=== PATIENT | male | born 1955 | race Caucasian/White ===

== ENCOUNTER 2017-08-12 09:11 | Day surgery (SDC) | payer OTHER ==
[2017-08-12] MEDS ORDERED: MIDAZOLAM 2 MG/2 ML VIAL IVP ONE (09:21)
[2017-08-12] MEDS ORDERED: NS 500 ML IV ONE (09:21)
[2017-08-12] MEDS ORDERED: ATROPINE SULFATE 1 MG/10 ML SYR IVP ONE (09:21)
[2017-08-12] MEDS ORDERED: BENZOCAINE UNIT DOSE SPRAY HURRICAINE MM ONE (09:21)
[2017-08-12] MEDS ORDERED: fentaNYL 100 MCG/2 ML INJ IVP ONE (09:21)
--- NOTE | 2017-08-12 09:39 | CPEKG ---
Heart Rate: 84 RR Interval: 714 QRSD Interval: 90 QT Interval: 404 QTC Interval: 478 QRS [place]: 12 T Wave [place]: -10 EKG Severity - ABNORMAL ECG - EKG Impression: ATRIAL FIBRILLATION, V-RATE 68-103 EKG Impression: BORDERLINE T ABNORMALITIES, INFERIOR LEADS EKG Impression: BORDERLINE PROLONGED QT INTERVAL Electronically Signed By: Guy Drew 12-Aug-2017 12:42:34
[2017-08-12 09:45] VITALS: RESP 6; O2SAT 97
[2017-08-12 10:06] LABS: INR 1.12 (0.83-1.16); PROTIME(PATIENT) 14.3 SEC (12.0-15.0)
[2017-08-12 10:07] LABS: APTT 29.1 SEC (23.0-38.0)
[2017-08-12 10:16] LABS: ANION GAP 13 mEq/L (8-16); CALCIUM 9.5 mg/dL (8.5-10.4); CARBON DIOXIDE 22 mEq/l (22-31); CHLORIDE 107 mEq/L (97-110); GLOMERULAR FILTRATION RATE > 60; GLUCOSE 85 mg/dL (70-100); MAGNESIUM 1.9 mg/dL (1.6-2.3); POTASSIUM 4.8 mEq/L (3.5-5.2); SODIUM 142 mEq/L (134-144)
--- NOTE | 2017-08-12 10:25 | PDANEPAE ---
ANE History of Present Illness 62 yo male with A-fib for DEANA/CV. ANE Past Medical History - Cardiovascular History Hx Arrhythmias: Yes - Pulmonary History Hx Sleep Apnea: No - Endocrine History Hx Diabetes: No Hypothyroid: No - Renal History Hx Renal Disorders: No - Liver History Hx Hepatic Disorders: No - GI History Hx Gastrointestinal Disorders: No ANE Review of Systems Review of systems is: negative Review of Systems: - Systems Constitutional: Reports: other (fatigue with biking - has to stop more often than usual) Cardiac: Reports: irregular heart rate Respiratory: Reports: no symptoms Gastrointestinal: Reports: no symptoms ANE Patient History - Allergies Allergies/Adverse Reactions: No Known Allergies Allergy (Unverified 08/11/17 14:47) - Home Medications Home medications: home medication list seen and reviewed Home Medications: Eliquis 08/12/17 [Last Taken 08/12/17 08:00] Halcion 0.25MG (*) 08/12/17 [Last Taken Unknown] Ibuprofen 08/12/17 [Last Taken Unknown] - NPO status NPO Since - Liquids (Date): 08/12/17 NPO Since - Liquids (Time): 08:00 (water with meds) - Smoking Hx Smoking Status: Never smoked ANE Labs/Vital Signs - Labs Result Diagrams: 08/12/17 09:40 - Vital Signs Vital Signs: reviewed preoperatively; see RN documention for details Respiratory Rate: 6 O2 Sat (%): 97 Height: 190.5 cm Weight: 96.8 kg ANE Physical Exam - Airway Neck exam: FROM Mallampati Score: Class 1 Mouth exam: dentures (permanently affixed bridges) - Pulmonary Pulmonary: clear to auscultation - Cardiovascular Cardiovascular: irregularly irregular - ASA Status ASA Status: II ANE Anesthesia Plan Anesthesia Plan: GA with mask Total IV Anesthesia: Yes
[2017-08-12] MEDS ORDERED: LIDOCAINE 2% 5 ML SDV ONE (10:26)
[2017-08-12] MEDS ORDERED: PROPOFOL 200 MG/20 ML VIAL ONE (10:26)
[2017-08-12] MEDS ORDERED: ACETAMINOPHEN 500 MG TAB PO PRN (10:44)
[2017-08-12] MEDS ORDERED: NALOXONE HCL 0.4 MG/ML INJ IVP PRN (10:44)
[2017-08-12] MEDS ORDERED: ALBUTEROL 3 ML DEYVIAL IH PRN (10:44)
--- NOTE | 2017-08-12 10:45 | POSTANESTH ---
Post Anesthetic Evaluation Cardiovascular Status: Normal, Stable Respiratory Status: Normal, Stable Level of Consciousness/Mental Status: Moderately Sleepy Pain Control: Adequate, Prn Tx Ordered Nausea/Vomiting Control: Adequate, Prn Tx Ordered Complications Possibly Related to Anesthesia: None Noted
--- NOTE | 2017-08-12 10:49 | CPEKG ---
Heart Rate: 57 RR Interval: 1053 P-R Interval: 176 QRSD Interval: 100 QT Interval: 436 QTC Interval: 425 P [place]: 28 QRS [place]: -2 T Wave [place]: -7 EKG Severity - BORDERLINE ECG - EKG Impression: SINUS RHYTHM EKG Impression: BORDERLINE T ABNORMALITIES, INFERIOR LEADS Electronically Signed By: Guy Drwe 12-Aug-2017 12:42:25
--- NOTE | 2017-08-12 12:03 | PDHPUP ---
History & Physical Update H&P update statement: This history and physical update is based on an assessment of the patient which was completed after admission or registration (within 24 hours), but prior to the surgery/procedure. H&P update: H&P reviewed & patient examined, no change in patient's condition since H&P completed
--- NOTE | 2017-08-12 12:04 | PDTEE1 ---
DEANA Cardioversion Procedure Procedure: transesophageal echo Indications: atrial fibrillation Consent: signed and in chart Anticoagulation: eliquis Procedural Details: Pads were placed in anterior-posterior position. DEANA probe was advanced and standard images obtained. There is no evidence of left atrial or left atrial appendage thrombus. Synchronized cardioversion attempt #1: 200J Results: normal sinus rhythm Conclusions: successful DEANA cardioversion
== END 2017-08-12 11:59 | disposition home or self-care (01) ==
LOC: FCATH 09:11
PROVIDERS: ATTEND Internal Medicine Cardiovascular Disease
PROC: B245ZZ4 Ultrasonography of Left Heart, Transesophageal (ICD-10-PCS; principal; 2017-08-12)
PROC: 5A2204Z Restoration of Cardiac Rhythm, Single (ICD-10-PCS; principal; 2017-08-12)
DX: I48.91 Unspecified atrial fibrillation (principal); I10 Essential (primary) hypertension; R53.83 Other fatigue; Z79.01 Long term (current) use of anticoagulants
CPT/HCPCS: J2704

== ENCOUNTER 2018-02-01 15:03 | Observation (INO) | payer OTHER ==
--- NOTE | 2018-02-01 15:16 | EDPHY ---
H & P Stated Complaint: abd pain Time Seen by Provider: 02/01/18 15:15 HPI/ROS: CHIEF COMPLAINT: HISTORY OF PRESENT ILLNESS: REVIEW OF SYSTEMS: A ten point review of systems was performed and is negative with the exception of the items mentioned in the HPI. Past medical history: Past surgical history: Family history: Social history: General Appearance: Alert. Vital signs reviewed. Eyes: Pupils equal and round, no conjunctival injection, no discharge. Anicteric. ENT, Mouth: Mucous membranes are moist, no oropharyngeal erythema or edema. Neck: No lymphadenopathy, supple. Respiratory: Lungs are clear to auscultation; no wheezes, rales, or rhonchi. Cardiovascular: Regular rate and rhythm; no murmur, rub, or gallop. Gastrointestinal: Abdomen is soft and nontender, no masses or organomegaly, bowel sounds normal. Skin: Warm and dry, no rashes on exposed skin, normal color. Back: Nontender to palpation over the thoracolumbar spine. No CVAT. Extremities: No lower extremity edema, no calf tenderness or swelling. Neurological: Alert and oriented. Moving all four extremities easily and equally. Cranial nerves II through XII are examined and are intact (visual acuity not tested). Strength is 5 over 5 bilaterally with testing of all major motor groups. Sensation is intact to light touch over all 4 extremities. Deep tendon reflexes are 2+ in the biceps and knees bilaterally. Gait is normal. [id number] is performed accurately. Psychiatric: Normal affect. - Personal History Current Tetanus/Diphtheria Vaccine: Yes Current Tetanus Diphtheria and Acellular Pertussis (TDAP): Yes - Medical/Surgical History Hx Asthma: No Hx Chronic Respiratory Disease: No Hx Diabetes: No Hx Cardiac Disease: No Hx Renal Disease: No Hx Cirrhosis: No Hx Alcoholism: No Hx HIV/AIDS: No Hx Splenectomy or Spleen Trauma: No Other PMH: afib, DCCV, prostatectomy 2009 - Social History Smoking Status: Never smoked Constitutional: Initial Vital Signs Temperature (C) 36.4 C 02/01/18 15:09 Heart Rate 52 L 02/01/18 15:09 Respiratory Rate 20 02/01/18 15:09 Blood Pressure 150/91 H 02/01/18 15:09 O2 Sat (%) 96 02/01/18 15:09 O2 Delivery Mode Room Air Allergies/Adverse Reactions: No Known Allergies Allergy (Unverified 02/01/18 15:08) Home Medications: Medication Instructions Recorded Halcion 0.25MG (*) 08/12/17 Ibuprofen 08/12/17 Aspirin 02/01/18 Crestor 02/01/18 Vitamin D3 02/01/18 Departure - Departure Referrals: Sophia Dang MD [Primary Care Provider] - As per Instructions
[2018-02-01] MEDS ORDERED: NS 1,000 ML IV ONE (15:20)
[2018-02-01] MEDS ORDERED: HYDROmorphONE/DILAUDID 2 MG/ML INJ IVP ONE ×2 (15:20→18:45)
[2018-02-01] MEDS ORDERED: ONDANSETRON 4 MG/2 ML VIAL IVP ONE (15:20)
--- NOTE | 2018-02-01 15:24 | EDPHY ---
H & P Stated Complaint: abd pain Time Seen by Provider: 02/01/18 15:15 HPI/ROS: CHIEF COMPLAINT: Abdominal pain, chills HISTORY OF PRESENT ILLNESS: Patient is a 62-year-old man who comes to the emergency department complaining of abdominal pain and chills. He states that it began last night at 2:00 a.m.. He was up until 7:00 a.m. When it improved. He then went to his follow-up cardiology appointment for history of AFib. His tests were normal there and he went to the gym. After coming home from the gym this afternoon the pain returned. His found him lying in bed with chills and moaning. He has not vomited. No diarrhea. No fever. He describes the pain as periumbilical and right lower quadrant and left lower quadrant as well as epigastric. He denies back or flank pain. No testicular pain he does have a history of prostate surgery but no abdominal surgeries. REVIEW OF SYSTEMS: Constitutional: denies: chills, fever, recent illness, recent injury EENTM: denies: blurred vision, double vision, nose congestion Respiratory: denies: cough, shortness of breath Cardiac: denies: chest pain, irregular heart rate, lightheadedness, palpitations Gastrointestinal/Abdominal: See HPI Genitourinary: denies: dysuria, frequency, hematuria, pain Musculoskeletal: denies: joint pain, muscle pain Skin: denies: lesions, rash, jaundice, bruising Neurological: denies: headache, numbness, paresthesia, tingling, dizziness, weakness Hematologic/Lymphatic: denies: blood clots, easy bleeding, easy bruising Immunologic/allergic: denies: HIV/AIDS, transplant EXAM: GENERAL: Uncomfortable, no acute distress HEAD: Atraumatic, normocephalic. EYES: Pupils equal round and reactive to light, extraocular movements intact, sclera anicteric, conjunctiva are normal. ENT: TMs normal, nares patent, oropharynx clear without exudates. Moist mucous membranes. NECK: Normal range of motion, supple without lymphadenopathy or JVD. LUNGS: Breath sounds clear to auscultation bilaterally and equal. No wheezes rales or rhonchi. HEART: Regular rate and rhythm without murmurs, rubs or gallops. ABDOMEN: Right lower quadrant tenderness, left lower quadrant tenderness BACK: No CVA tenderness, no spinal tenderness, step-offs or deformities EXTREMITIES: Normal range of motion, no pitting or edema. No clubbing or cyanosis. NEUROLOGICAL: Cranial nerves II through XII grossly intact. Normal speech, normal gait. 5/5 strength, normal movement in all extremities, normal sensation PSYCH: Normal mood, normal affect. SKIN: Warm, dry, normal turgor, no visible rashes or lesions. Source: Patient Exam Limitations: No limitations - Personal History Current Tetanus/Diphtheria Vaccine: Yes Current Tetanus Diphtheria and Acellular Pertussis (TDAP): Yes - Medical/Surgical History Hx Asthma: No Hx Chronic Respiratory Disease: No Hx Diabetes: No Hx Cardiac Disease: No Hx Renal Disease: No Hx Cirrhosis: No Hx Alcoholism: No Hx HIV/AIDS: No Hx Splenectomy or Spleen Trauma: No Other PMH: afib, prostatectomy 2009 - Family History Significant Family History: No pertinent family hx - Social History Smoking Status: Never smoked Alcohol Use: Sober Drug Use: None Constitutional: Initial Vital Signs Temperature (C) 36.4 C 02/01/18 15:09 Heart Rate 52 L 02/01/18 15:09 Respiratory Rate 20 02/01/18 15:09 Blood Pressure 150/91 H 02/01/18 15:09 O2 Sat (%) 96 02/01/18 15:09 O2 Delivery Mode Nasal Cannula O2 (L/minute) 2 Allergies/Adverse Reactions: No Known Allergies Allergy (Unverified 02/01/18 15:08) Home Medications: Medication Instructions Recorded Ibuprofen [Motrin (*)] 200 - 400 mg PO Q6H PRN 08/12/17 Aspirin [Aspirin 325 mg (*)] 325 mg PO DAILY 02/01/18 Cholecalciferol Vit D3 [Vitamin D3 2,000 units PO DAILY 02/01/18 (*)] Melatonin [Melatonin 3 MG (*)] 3 mg PO HS 02/01/18 Rosuvastatin Calcium [Crestor] 10 mg PO HS 02/01/18 Zolpidem Tartrate [Ambien] 10 mg PO HS PRN 02/01/18 Medical Decision Making - Diagnostics Imaging Results: Imaging Impressions Abdomen CT 02/01/18 16:35 Impression: 1. Acute likely ruptured appendicitis without abscess or free air. 2. Grade 1 spondylolytic spondylolisthesis of L5 on S1. 3. Additional findings as above. Findings discussed with Dr. Roshan Parker on 02/01/2018 at 17:27. Imaging: Discussed imaging studies w/ pass worker Radiologist ED Course/Re-evaluation: 5:30 p.m. we discussed the CT results. The patient is declining more pain medicine. I spoke with Dr. Cevallos who will come to evaluate. We will treat with Sandie. Differential Diagnosis: Partial list of the Differential diagnosis considered include but were not limited to; appendicitis, kidney stone, urinary tract infection diverticulitis and although unlikely based on the history and physical exam, I also considered peptic ulcer disease, ischemia, volvulus. - Data Points Laboratory Results: Laboratory Results 02/01/18 15:30 02/01/18 15:30 02/01/18 02/01/18 02/01/18 15:30 15:30 15:30 WBC RBC Hgb Hct MCV MCH MCHC RDW Plt Count MPV Neut % (Auto) Lymph % (Auto) [place] % (Auto) Eos % (Auto) Baso % (Auto) Nucleat RBC Rel Count Absolute Neuts (auto) Absolute Lymphs (auto) Absolute Monos (auto) Absolute Eos (auto) Absolute Basos (auto) Absolute Nucleated RBC Immature Gran % Immature Gran # PT 13.0 SEC SEC (12.0-15.0) INR 0.96 (0.83-1.16) APTT 23.1 SEC SEC (23.0-38.0) Sodium 140 mEq/L mEq/L (135-145) Potassium 4.2 mEq/L mEq/L (3.5-5.2) Chloride 103 mEq/L mEq/L (97-110) Carbon Dioxide 23 mEq/l mEq/l (22-31) Anion Gap 14 mEq/L mEq/L (8-16) BUN 16 mg/dL mg/dL (7-23) Creatinine 0.8 mg/dL mg/dL (0.7-1.3) Estimated GFR > 60 Glucose 111 mg/dL H mg/dL (70-100) Calcium 9.6 mg/dL mg/dL (8.5-10.4) Total Bilirubin 3.0 mg/dL H mg/dL (0.1-1.4) Conjugated Bilirubin 0.4 mg/dL mg/dL (0.0-0.5) Unconjugated Bilirubin 2.6 mg/dL H mg/dL (0.0-1.1) AST 39 IU/L IU/L (17-59) ALT 45 IU/L IU/L (21-72) Alkaline Phosphatase 72 IU/L IU/L (38-126) Total Protein 7.7 g/dL g/dL (6.3-8.2) Albumin 4.8 g/dL g/dL (3.5-5.0) Lipase 108 IU/L IU/L (23-300) Urine Color YELLOW Urine Appearance HAZY Urine pH 8.0 H (5.0-7.5) Ur Specific [place] 1.017 (1.002-1.030) Urine Protein NEGATIVE (NEGATIVE) Urine Ketones 1+ H (NEGATIVE) Urine Blood NEGATIVE (NEGATIVE) Urine Nitrate NEGATIVE (NEGATIVE) Urine Bilirubin NEGATIVE (NEGATIVE) Urine Urobilinogen NEGATIVE EU EU (0.2-1.0) Ur Leukocyte Esterase NEGATIVE (NEGATIVE) Urine RBC NONE SEEN /hpf /hpf (0-3) Urine WBC 1-3 /hpf /hpf (0-3) Ur Epithelial Cells TRACE /lpf /lpf (NONE-1+) Urine Mucus TRACE /lpf /lpf (NONE-1+) Urine Glucose NEGATIVE (NEGATIVE) 02/01/18 15:30 WBC 13.23 10^3/uL H 10^3/uL (3.80-9.50) RBC 5.24 10^6/uL 10^6/uL (4.40-6.38) Hgb 15.8 g/dL g/dL (13.7-17.5) Hct 44.5 % % (40.0-51.0) MCV 84.9 fL fL (81.5-99.8) MCH 30.2 pg pg (27.9-34.1) MCHC 35.5 g/dL g/dL (32.4-36.7) RDW 12.3 % % (11.5-15.2) Plt Count 171 10^3/uL 10^3/uL (150-400) MPV 9.5 fL fL (8.7-11.7) Neut % (Auto) 79.7 % H % (39.3-74.2) Lymph % (Auto) 12.8 % L % (15.0-45.0) [place] % (Auto) 6.6 % % (4.5-13.0) Eos % (Auto) 0.2 % L % (0.6-7.6) Baso % (Auto) 0.2 % L % (0.3-1.7) Nucleat RBC Rel Count 0.0 % % (0.0-0.2) Absolute Neuts (auto) 10.54 10^3/uL H 10^3/uL (1.70-6.50) Absolute Lymphs (auto) 1.69 10^3/uL 10^3/uL (1.00-3.00) Absolute Monos (auto) 0.87 10^3/uL H 10^3/uL (0.30-0.80) Absolute Eos (auto) 0.03 10^3/uL 10^3/uL (0.03-0.40) Absolute Basos (auto) 0.03 10^3/uL 10^3/uL (0.02-0.10) Absolute Nucleated RBC 0.00 10^3/uL 10^3/uL (0-0.01) Immature Gran % 0.5 % % (0.0-1.1) Immature Gran # 0.07 10^3/uL 10^3/uL (0.00-0.10) PT INR APTT Sodium Potassium Chloride Carbon Dioxide Anion Gap BUN Creatinine Estimated GFR Glucose Calcium Total Bilirubin Conjugated Bilirubin Unconjugated Bilirubin AST ALT Alkaline Phosphatase Total Protein Albumin Lipase Urine Color Urine Appearance Urine pH Ur Specific [place] Urine Protein Urine Ketones Urine Blood Urine Nitrate Urine Bilirubin Urine Urobilinogen Ur Leukocyte Esterase Urine RBC Urine WBC Ur Epithelial Cells Urine Mucus Urine Glucose Medications Given: Discontinued Medications Ertapenem (Invanz) 1 gm IVP EDNOW ONE PRN Reason: Protocol Stop: 02/01/18 17:32 Last Admin: 02/01/18 17:37 Dose: 1 gm Hydromorphone HCl (Dilaudid) 1 mg IVP EDNOW ONE Stop: 02/01/18 15:21 Last Admin: 02/01/18 15:40 Dose: 1 mg Hydromorphone HCl (Dilaudid) 1 mg IVP EDNOW ONE Stop: 02/01/18 18:46 Last Admin: 02/01/18 19:14 Dose: Not Given Sodium Chloride (Ns) 1,000 mls @ 0 mls/hr IV EDNOW ONE; Wide Open PRN Reason: Protocol Stop: 02/01/18 15:21 Last Admin: 02/01/18 15:40 Dose: 1,000 mls Ondansetron HCl (Zofran) 4 mg IVP EDNOW ONE Stop: 02/01/18 15:21 Last Admin: 02/01/18 15:40 Dose: 4 mg Departure - Departure Disposition: To OP Cath/Surgery Clinical Impression: Acute appendicitis Qualifiers: Acute appendicitis type: with localized peritonitis Qualified Code(s): K35.3 - Acute appendicitis with localized peritonitis Condition: Fair
[2018-02-01 15:44] LABS: PLATELET COUNT 171 10^3/uL (150-400)
[2018-02-01 16:02] LABS: INR 0.96 (0.83-1.16)
[2018-02-01] MEDS ORDERED: IOPAMIDOL (ISOVUE-300) 100 ML BTL ONE (16:41)
[2018-02-01] MEDS ORDERED: ERTAPENEM 1 GM VIAL IVP ONE (17:31)
[2018-02-01] MEDS ORDERED: HYDROmorphONE/DILAUDID 1 MG/ML INJ IVP ONE (18:37)
[2018-02-01] MEDS ORDERED: LR 1,000 ML IV ONE (19:02)
--- NOTE | 2018-02-01 19:55 | GHP ---
[f rep st] HISTORY AND PHYSICAL DATE OF ADMISSION: 02/01/2018 ADMITTING DIAGNOSIS: Acute appendicitis. HISTORY: The patient is a 62-year-old white male who had the onset of abdominal pain last evening. He had a prior similar episode, approximately 1 year ago, which lasted 3 hours. He had dinner last evening which included enchilada casserole with spinach salad, avocado, and hard boiled egg. He stayed up reading until about 11 and went to bed. He woke up at 2 a.m. with a severe epigastric abdominal pain which was described as if he had been "slugged. " He was able to go back to sleep by 5 a.m. He woke up at 7am and, in fact, was hungry. He had cereal and coffee and went to see his call out operator. After that, he went to the gym and worked out on the elliptical for 30 minutes and did some weightlifting. At noon, he was back at home and had a bowl of popcorn and a beer, and by 1, he had the recurrence of the epigastric achy pain. By 1: 30, he had severe chills, and the pain was severe enough he had difficulty moving. He did go to urgent care and was redirected to the emergency room. On arrival he was weak, dizzy, complaining of a headache. Every bump in the road on the way over to the ER was quite uncomfortable for him. His pain was 9/10 to 10/10 on arrival. It was on arrival that he had "dry heaves." CAT scan was performed, which was consistent with acute appendicitis. There was no fluid in the pelvis. I was asked to come and see the patient and evaluate him for surgery. Note that he has not had an upper respiratory tract infection or diarrhea in the last 2 weeks. He has traveled to 5 countries in [place] in the last 6 months and did take malaria prophylaxis. He is not taking antibiotics. There is no history of inflammatory bowel disease. PAST MEDICAL HISTORY: He does not smoke. He drinks 3 or 4 beers per day. He has no known drug allergies. His home medications include Crestor 10 mg a day. He uses Tylenol as needed, aspirin as needed. He does take an herbal supplement and uses a Flonase nasal spray. Surgeries include a tonsillectomy, treatment of pyloric stenosis, and he has had a suprapubic prostatectomy for prostate cancer. There is no history of rheumatic fever, tuberculosis, hepatitis, or transfusions. REVIEW OF SYSTEMS: He had atrial fibrillation in 2017 and underwent cardioversion (successful). He wears lenses for visual correction. 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 He has a full upper and lower denture. Review of systems is otherwise quite negative. There are no limits on his activities. There is no history of steroid use in the last 6 months. LABORATORIES: Reveal a white count of 19.3 with 87% neutrophils. His platelet count is 215. His hematocrit is 45. His glucose is 113. A bilirubin has not been done with the laboratories on this admission. PHYSICAL EXAMINATION: GENERAL: He is awake and alert. He has been given narcotics and is in minimal distress at this time. SKULL: Normocephalic and atraumatic. NEUROLOGIC: He is oriented to person, place, and time. NECK: There are no carotid bruits. Thyroid is not enlarged. LYMPHATIC: There is no cervical, supraclavicular, axillary, or inguinal lymphadenopathy. BACK: Unremarkable. LUNGS: Clear to auscultation. CARDIAC: Shows S1, S2 to be normal. There is normal split of S2. He has a regular rate and rhythm. ABDOMINAL: Hypoactive bowel sounds. He is tender with cough over McBurney point. He really is not tender to palpation, except in the right lower quadrant , where it is an 8/10. Psoas and obturator signs are negative. IMAGING STUDIES: CAT scan certainly does show an enlarged appendix with a thickened wall and some periappendiceal stranding, but no distinct fluid in the pelvis. IMPRESSION: A patient with acute appendicitis, without yet evidence of rupture. Will plan a laparoscopic appendectomy. Note is made we did talk about antibiotic treatment of acute appendicitis as well, and he and his agree to proceed with a surgical procedure at this time. /[id number]/MODL MTDD
[2018-02-01] MEDS ORDERED: HEPARIN 5,000 UNIT/0.5 ML INJ ONE (20:00)
[2018-02-01] MEDS ORDERED: ceFAZolin 1 GM/5 ML SYR ONE (20:00)
[2018-02-01] MEDS ORDERED: MIDAZOLAM 2 MG/2 ML VIAL IVP ONE (20:04)
--- NOTE | 2018-02-01 20:10 | PDANEPAE ---
ANE History of Present Illness acute appendicitis s/f lap appy ANE Past Medical History - Cardiovascular History Hx Arrhythmias: Yes Cardiovascular History Comment: a-fib s/p CV. dyslipidemia - Pulmonary History Hx Oxygen in Use at Home: No Hx Sleep Apnea: No - Endocrine History Hx Diabetes: No - Renal History Hx Renal Disorders: No - Liver History Hx Hepatic Disorders: No - GI History Hx Gastrointestinal Disorders: No ANE Review of Systems Review of Systems: - Exercise capacity Exercise capacity: >=4 METS ANE Patient History - Allergies Allergies/Adverse Reactions: No Known Allergies Allergy (Unverified 02/01/18 15:08) - Home Medications Home Medications: Ibuprofen [Motrin (*)] 200 - 400 mg PO Q6H PRN 08/12/17 [Last Taken 1 Week Ago ~ 01/25/18] Aspirin [Aspirin 325 mg (*)] 325 mg PO DAILY 02/01/18 [Last Taken 01/31/18] Cholecalciferol Vit D3 [Vitamin D3 (*)] 2,000 units PO DAILY 02/01/18 [Last Taken 1 Week Ago ~01/25/18] Melatonin [Melatonin 3 MG (*)] 3 mg PO HS 02/01/18 [Last Taken 01/31/18] Rosuvastatin Calcium [Crestor] 10 mg PO HS 02/01/18 [Last Taken 01/31/18] Zolpidem Tartrate [Ambien] 10 mg PO HS PRN 02/01/18 [Last Taken 1 Month Ago ~] - NPO status NPO Since - Liquids (Date): 02/01/18 NPO Since - Liquids (Time): 13:00 NPO Since - Solids (Date): 02/01/18 NPO Since - Solids (Time): 13:00 - Smoking Hx Smoking Status: Never smoked - Alcohol Use Alcohol Use: Sober ANE Labs/Vital Signs - Labs Result Diagrams: 02/01/18 15:30 02/01/18 15:30 - Vital Signs Blood Pressure: 146/80 Heart Rate: 78 Respiratory Rate: 18 O2 Sat (%): 99 Height: 190.5 cm Weight: 92.986 kg ANE Physical Exam - Airway Neck exam: FROM Mallampati Score: Class 2 Mouth exam: normal dental/mouth exam, [place] - Pulmonary Pulmonary: no respiratory distress - Cardiovascular Cardiovascular: regular rate and rhythym - ASA Status ASA Status: II, E ANE Anesthesia Plan Anesthesia Plan: general endotracheal anesthesia
[2018-02-01] MEDS ORDERED: MIDAZOLAM 2 MG/2 ML VIAL ONE (20:25)
[2018-02-01] MEDS ORDERED: ONDANSETRON 4 MG/2 ML VIAL ONE (20:27)
[2018-02-01] MEDS ORDERED: PROPOFOL/EMULSION 500 MG/50 ML BOTTLE IV ONE (20:27)
[2018-02-01] MEDS ORDERED: DEXAMETHASONE 4 MG/ML VIAL ONE ×2 (20:27)
[2018-02-01] MEDS ORDERED: fentaNYL 100 MCG/2 ML INJ ONE ×2 (20:27→22:40)
[2018-02-01] MEDS ORDERED: ROCURONIUM 50 MG/5 ML VIAL ONE (20:27)
[2018-02-01] MEDS ORDERED: LIDOCAINE 2% 100 MG/5 ML SYR ONE (20:28)
[2018-02-01] MEDS ORDERED: LIDOCAINE HCL 160 MG/4 ML LTA KIT TP ONE (20:28)
[2018-02-01] MEDS ORDERED: NEOSTIGMINE METHYLSULFATE 3 MG/3 ML SYR ONE (21:53)
[2018-02-01] MEDS ORDERED: GLYCOPYRROLATE 0.2 MG/1 ML VIAL ONE ×2 (21:53)
[2018-02-01] MEDS ORDERED: HYDROCODONE/APAP 5/325 TAB PO PRN (22:16)
[2018-02-01] MEDS ORDERED: ONDANSETRON 4 MG/2 ML VIAL IVP PRN ×2 (22:16→22:21)
[2018-02-01] MEDS ORDERED: PROMETHAZINE HCL 25 MG/ML INJ IVP PRN (22:16)
[2018-02-01] MEDS ORDERED: DEXAMETHASONE 4 MG/ML VIAL IVP PRN (22:16)
[2018-02-01] MEDS ORDERED: PHENYLEPHRINE HCL 100 MCG/ML SYR IVP PRN (22:16)
[2018-02-01] MEDS ORDERED: ALBUTEROL 3 ML DEYVIAL IH PRN (22:16)
[2018-02-01] MEDS ORDERED: LR 500 ML IV PRN (22:16)
[2018-02-01] MEDS ORDERED: MEPERIDINE 25 MG/ML SYR IVP PRN (22:16)
[2018-02-01] MEDS ORDERED: NALOXONE HCL 0.4 MG/ML INJ IVP PRN (22:16)
[2018-02-01] MEDS ORDERED: ACETAMINOPHEN 500 MG TAB PO PRN (22:16)
[2018-02-01] MEDS ORDERED: METOCLOPRAMIDE 10 MG/2 ML VIAL IVP PRN (22:16)
[2018-02-01] MEDS ORDERED: LABETALOL HCL 5 MG/ML 20 ML MDV IVP PRN (22:16)
[2018-02-01] MEDS ORDERED: oxyCODONE IR 5 MG TAB PO PRN (22:16)
[2018-02-01] MEDS ORDERED: ZOLPIDEM TARTRATE 5 MG TAB PO PRN (22:20)
--- NOTE | 2018-02-01 22:28 | POSTANESTH ---
Post Anesthetic Evaluation Cardiovascular Status: Normal, Stable Respiratory Status: Normal, Stable Level of Consciousness/Mental Status: Can Participate in Eval Pain Control: Adequate, Prn Tx Ordered Nausea/Vomiting Control: Adequate, Prn Tx Ordered Complications Possibly Related to Anesthesia: None Noted
[2018-02-01] MEDS ORDERED: LR 1,000 ML IV SCH (22:30)
[2018-02-01] MEDS: fentaNYL 100 MCG/2 ML INJ IVP PRN ×4 (22:42→23:04)
--- NOTE | 2018-02-01 23:16 | POSTOPPROG ---
Post Op Note Date of Operation: 02/01/18 Surgeon: Inderjit Cevallos Anesthesia: GET(General Endotracheal) Pre-op Diagnosis: acute appendicitis Post-op Diagnosis: acute unruptured appendicitis Indication: acute appendicitis Procedure: laparoscopic appendectomy Findings: acute unruptured appendicitis Inf/Abcess present in the surg proc area at time of surgery?: No EBL: Minimal Total fluids administered: 1000 Complications: none
[2018-02-02] MEDS: KETOROLAC 15 MG/1 ML SDV IVP SCH ×3 (00:25→11:53)
[2018-02-02] MEDS: HYDROmorphone HCL/NS 0.5 MG/ML SYR IVP PRN ×2 (03:29→08:38)
[2018-02-02] MEDS: ACETAMINOPHEN 500 MG TAB PO SCH ×2 (03:32→06:09)
--- NOTE | 2018-02-02 05:26 | GOP ---
[f rep st] OPERATIVE REPORT DATE OF OPERATION: 02/01/2018 SURGEON: Inderjit Cevallos MD ANESTHESIA: General endotracheal. PREOPERATIVE DIAGNOSIS: Acute appendicitis. POSTOPERATIVE DIAGNOSIS: Acute unruptured appendicitis. PROCEDURE PERFORMED: Laparoscopic appendectomy. FINDINGS: Acute unruptured appendicitis. ESTIMATED BLOOD LOSS: Minimal INDICATIONS: Acute appendicitis by CT. DESCRIPTION OF PROCEDURE: The patient was placed on the operating table in supine position. After induction of adequate general endotracheal anesthesia, the abdomen was carefully clipped, prepped and draped. A surgical time-out was carried out and agreed to by all members of the operative team. A curvilinear incision was made at the umbilicus. Transverse, suprapubic and oblique left lower quadrant incisions were also made. The umbilical incision was deepened to expose the right and left anterior rectus sheath. These were elevated with hemostats. The fascia was divided in the midline. Careful and tedious dissection was carried out to make sure subjacent tissue was not injured since he has had a previous supraumbilical incision for his laparoscopic prostatectomy. Dissection was continued off to the right and free access to the peritoneum was achieved. An 11-12 mm Kt trocar was positioned after pursestring of #0 PDS was then placed. Intra-abdominal insufflation was carried out to 15 mmHg. A left lower quadrant 5 mm port was placed under direct vision as was a suprapubic 5 mm port. The patient was positioned in a 15 degree Trendelenburg and rotated 5 degrees to the left. The appendix was normal in size for the first one-half of the appendix starting at the cecum. The distal 1/3 was an inflammatory mass. The appendix was carefully from the right gutter. Harmonic scalpel was used to facilitate the dissection and to help divide the mesoappendix. Once the appendix was elevated, it was divided at its base taking a cuff of cecum with a single application of a 35 mm Endo-KITA vascular stapler. Specimen was placed in EndoCatch bag and delivered via the umbilical port site. Pneumoperitoneum was re-established. Note was made fluid had not been identified in the pelvis initially. Hemostasis was excellent. Irrigation was carried out with heparin and Ancef containing irrigant. There was no evidence of inguinal hernias. The small bowel was run for a distance of 3 feet. There was no evidence of Meckel diverticulum or mesenteric adenitis. The 5mm ports were now removed under direct vision. The umbilical port was then removed. The fascia was grasped on either side to elevate the midpoint of the midline fascial defect. An inverted simple suture of #0 PDS was placed and tied. The pursestring was now tied. The subcutaneous tissue was explored to check for hemostasis that was achieved with electrocautery as needed. The skin was closed at all sites with inverted simple sutures of #4-0 Vicryl after irrigation with heparin and Ancef containing irrigant. Mastisol and Steri-Strips were positioned. Band-Aids were positioned. The patient was transferred to recovery in stable and satisfactory condition. SURGEON: Inderjit Cevallos MD, FACS. ABSCESS: None. FLUIDS ADMINISTERED: 1000 cc. COMPLICATIONS: None. DRAINS: None. /[id number]/MODL MTDD
[2018-02-02 11:52] VITALS: BP 135/75
[2018-02-02] MEDS ORDERED: HYDROmorphONE/DILAUDID 2 MG TAB PO PRN (13:07)
--- NOTE | 2018-02-02 13:10 | SOAPPROG ---
SOAP Progress Note Assessment/Plan: Assessment: Plan: 02/02/18 13:08 02/02/2018 POD#1 Assessment: Doing well Plan: home today Subjective: No flatus yet Objective: Vital Signs Temp Pulse Resp BP Pulse Ox 36.7 C 57 L 18 135/75 H 92 02/02/18 11:50 02/02/18 11:50 02/02/18 11:50 02/02/18 11:50 02/02/18 11:50 02/01/18 02/02/18 02/03/18 05:59 05:59 05:59 Intake Total 2935 Output Total 10 1350 Balance 2925 -1350 PT 13.0 SEC (12.0-15.0) 02/01/18 15:30 INR 0.96 (0.83-1.16) 02/01/18 15:30 - Time Spent With Patient Time Spent With Patient: 35 - Pending Discharge Pending Discharge Within 24 Hours: Yes Pending Discharge Date: 02/02/18 Pending Discharge Time: 14:00 Physical Exam - Physical Exam General Appearance: WD/WN, alert, no apparent distress Neck: non-tender, full range of motion, supple, normal inspection Respiratory: chest non-tender, lungs clear, normal breath sounds Cardiac/Chest: regular rate, rhythm Abdomen: normal bowel sounds, non-tender, soft Male Genitalia: deferred Rectal: deferred Back: Normal inspection Skin: normal color Extremities: normal range of motion Neuro/Psych: no motor/sensory deficits, alert, normal mood/affect, oriented x 3 ICD10 Worksheet Patient Problems: Problems Problem Status Onset Acute appendicitis Acute
--- NOTE | 2018-02-02 13:47 | GDS ---
[f rep st] DISCHARGE SUMMARY DIAGNOSIS: Acute unruptured appendicitis. PROCEDURE: Laparoscopic appendectomy. DISPOSITION: Home with routine self-care. CONDITION: Good. DIETARY RECOMMENDATIONS: No restrictions on the diet except he should avoid constipating foods such as bananas, rice, applesauce, and cheese. HOME MEDICATIONS: Include Tylenol 1000 mg every 8 hours, Toradol 10 mg every 6 hours, Dilaudid 2 mg 1-2 every 4 hours as needed for severe pain. He will resume his Crestor as well as his aspirin. He will continue his Ambien and his melatonin. DISCHARGE INSTRUCTIONS: He is to avoid lifting more than 10 pounds for the next 3 weeks. He is to limit his activity to gentle washing. He is to shower only. He is to keep his Steri-Strips in place. For the next 2 weeks he is to watch for signs of wound infection and he is not to ice his wounds. Superficial wound infections would be manifested by increased warmth in the wound, swelling, redness, and tenderness. Deep space infections would be manifested by pain similar to his appendicitis, decreased appetite, general malaise, fevers, chills, or abdominal pain. He is to follow up with Dr. David Smith, Ernesto Flores, or Annmarie Lorenz in the next 2 weeks. He is instructed to call their office to set up an appointment. His has been given Steri-Strips and Mastisol should his current Steri-Strips need to be replaced. The patient has done well from his surgery. /[id number]/MODL MTDD
[2018-02-02] MEDS ORDERED: MELATONIN 3 MG TAB PO SCH (21:00)
[2018-02-02] MEDS ORDERED: ROSUVASTATIN CALCIUM 10 MG TAB PO SCH (21:00)
== END 2018-02-02 14:42 | disposition home or self-care (01) ==
LOC: F1N 18:41
PROVIDERS: ADMIT Surgery; ATTEND Surgery
PROC: 0DTJ4ZZ Resection of Appendix, Percutaneous Endoscopic Approach (ICD-10-PCS; principal; 2018-02-01 19:30)
DX: K35.80 Unspecified acute appendicitis (principal); E86.9 Volume depletion, unspecified; I48.91 Unspecified atrial fibrillation; M43.17 Spondylolisthesis, lumbosacral region; E78.5 Hyperlipidemia, unspecified
CPT/HCPCS: 44970; 74177; 96361; 96374; 96375; 96376; 99285; G0378; J1100; J1170; J1644; J1885; J2001; J2250; J2370; J2405; J2704; J2710; J3010; Q9967

== ENCOUNTER 2018-10-20 07:11 | Day surgery (SDC) | payer OTHER ==
[2018-10-20] MEDS ORDERED: MIDAZOLAM 2 MG/2 ML VIAL IVP ONE (07:13)
[2018-10-20] MEDS ORDERED: fentaNYL 100 MCG/2 ML INJ IVP ONE (07:13)
[2018-10-20] MEDS ORDERED: ATROPINE SULFATE 1 MG/10 ML SYR IVP ONE (07:13)
[2018-10-20] MEDS ORDERED: BENZOCAINE UNIT DOSE SPRAY HURRICAINE MM ONE (07:13)
[2018-10-20] MEDS ORDERED: NS 500 ML IV ONE (07:13)
[2018-10-20] MEDS ORDERED: ETOMIDATE 40 MG/20 ML INJ IV ONE (07:30)
[2018-10-20 07:50] LABS: INR 1.01 (0.83-1.16); PROTIME(PATIENT) 13.5 SEC (12.0-15.0)
--- NOTE | 2018-10-20 08:42 | PDPROPOC ---
Sedation Plan of Care Sedation Plan of Care: vital signs stable, mental status noted, patient educated of risks, benefits, alternatives, patient can tolerate sedation ASA Classification: ASA 3 Planned drugs: fentanyl, midazolam Mallampati Score: Class 3 Mallampati Reference Image: Patient passed 3-3-2 rule?: Yes
[2018-10-20] MEDS ORDERED: fentaNYL 100 MCG/2 ML INJ ONE (08:45)
[2018-10-20] MEDS ORDERED: MIDAZOLAM 2 MG/2 ML VIAL ONE (08:45)
--- NOTE | 2018-10-20 08:51 | PDTEE1 ---
DEANA Cardioversion Procedure Procedure: electrical cardioversion, transesophageal echo Indications: atrial fibrillation Consent: signed and in chart Anticoagulation: eliquis Procedural Details: PROCEDURE: Elective DEANA and DC cardioversion. DATE OF PROCEDURE: 10/20/2018 COMPLICATIONS: None TERRITORY REPRESENTATIVE: Antonio Montano MD INDICATION AND APPROPRIATE USE CRITERIA: PAROXYSMAL (SYMPTOMATIC) AND SUSTAINED ATRIAL FIBRILLATION PROCEDURE IN DETAIL: After informed consent was obtained and n.p.o. status was confirmed, the oropharynx was anesthetized with 1% cetacaine topical solution. The patient was given 2 mg of Versed as well as Fentanyl 50 mcg intravenously and an additional 7mg of Etomidate for sedation prior to the DEANA. The DEANA probe was advanced in to the patient's esophagus and the ultrasound revealed no evidence of left atrial clot or thrombus. (Please see the full report under separate cover.) We proceeded with elective DC cardioversion, the pads were placed in the anterior and posterior position. The patient was given 6mg Etomidate and 50mg of Fentanyl for deep sedation prior to being cardioverted. There was 300 J of biphasic synchronized counter shock delivered. The patient was successfully returned to normal sinus rhythm with occasional PACs and intermittent junctional escape. FINAL IMPRESSION: Successful elective DC cardioversion without immediate complication. The patient will remain on Eliquis 5mg PO BID for at least 30 days post procedure. The patient is to avoid caffeine, alcohol and strenuous exercise for the next 3 weeks. He is to follow up with Dr. Drew on November 28, 2018 to discuss possible atrial fibrillation ablation. Synchronized cardioversion attempt #1: 300J Results: normal sinus rhythm (WITH OCCASIONAL PAC'S AND INTERMITTENT JUNCTIONAL ESCAPE) Conclusions: successful DEANA cardioversion Patient Problems: Problems Problem Status Onset Acute appendicitis Acute
--- NOTE | 2018-10-20 09:58 | CPEKG ---
Test Reason : OPEN Blood Pressure : / mmHG Vent. Rate : 056 BPM Atrial Rate : 000 BPM P-R Int : 087 ms QRS Dur : 092 ms QT Int : 413 ms P-R-T Axes : 000 014 007 degrees QTc Int : 399 ms Atrial fibrillation LVH Confirmed by Jose Hunt ([id number]) on 10/20/2018 9:57:44 AM Referred By: Confirmed By:Jose Hunt
--- NOTE | 2018-10-20 09:59 | CPEKG ---
Test Reason : OPEN Blood Pressure : / mmHG Vent. Rate : 052 BPM Atrial Rate : 053 BPM P-R Int : 178 ms QRS Dur : 097 ms QT Int : 446 ms P-R-T Axes : 034 003 005 degrees QTc Int : 415 ms Sinus rhythm Atrial premature complex Confirmed by Jose Hunt ([id number]) on 10/20/2018 9:59:05 AM Referred By: Confirmed By:Jose Hunt
== END 2018-10-20 10:10 | disposition home or self-care (01) ==
LOC: FCATH 07:11
PROVIDERS: ATTEND Internal Medicine Cardiovascular Disease
DX: I48.0 Paroxysmal atrial fibrillation (principal); I25.10 Atherosclerotic heart disease of native coronary artery without angina pectoris; E78.5 Hyperlipidemia, unspecified; G47.33 Obstructive sleep apnea (adult) (pediatric); E80.4 Gilbert syndrome; E55.9 Vitamin D deficiency, unspecified; Z79.01 Long term (current) use of anticoagulants; Z85.46 Personal history of malignant neoplasm of prostate; Z85.828 Personal history of other malignant neoplasm of skin; Z82.49 Family history of ischemic heart disease and other diseases of the circulatory system
CPT/HCPCS: J2250; J3010

== ENCOUNTER 2019-01-23 10:54 | Day surgery (SDC) | payer OTHER ==
[2019-01-23] MEDS ORDERED: ATROPINE SULFATE 1 MG/10 ML SYR IVP ONE (10:56)
[2019-01-23] MEDS ORDERED: BENZOCAINE UNIT DOSE SPRAY HURRICAINE MM ONE (10:56)
[2019-01-23] MEDS ORDERED: NS 500 ML IV ONE (10:56)
[2019-01-23] MEDS ORDERED: MIDAZOLAM 2 MG/2 ML VIAL IVP ONE (10:56)
[2019-01-23] MEDS ORDERED: fentaNYL 100 MCG/2 ML INJ IVP ONE (10:56)
[2019-01-23 11:32] LABS: INR 1.14 (0.83-1.16); PROTIME(PATIENT) 14.1 SEC (12.0-15.0)
--- NOTE | 2019-01-23 11:50 | PDGENHP ---
History & Physical Chief Complaint: PAF History of Present Illness: Onset of PAF January 06, anticoagulated with Eliquis 5mg BID since then. Lifetime history of 2 episodes of AF requiring cardioversion , most recently 10/2018. Symptoms include activity intolerance and fatigue. Relevant Physical Exam: General: A&Ox4, no apparent distress. Respiratory: CTA. Cardiac: Irregularly irregular, S1, S2. Extremities: Pulses 2+ bilaterally, no edema Cardiorespiratory Assessment: Proceed with DEANA and DCCV as planned for today. Continue Eliquis for 4 weeks post-cardioversion.
[2019-01-23] MEDS ORDERED: PROPOFOL/EMULSION 500 MG/50 ML BOTTLE IV ONE (12:44)
--- NOTE | 2019-01-23 13:06 | PDTEE1 ---
DEANA Cardioversion Procedure Procedure: electrical cardioversion, transesophageal echo Indications: atrial fibrillation Consent: signed and in chart Anticoagulation: eliquis Procedural Details: Pads were placed in anterior-posterior position. DEANA probe was advanced and standard images obtained. There is no evidence of left atrial or left atrial appendage thrombus. Synchronized cardioversion attempt #1: 200J Results: normal sinus rhythm Conclusions: successful DEANA cardioversion Patient Problems: Problems Problem Status Onset Paroxysmal atrial fibrillation Acute Acute appendicitis Acute
--- NOTE | 2019-01-23 13:15 | PDANEPAE ---
ANE Past Medical History - Cardiovascular History Hx Arrhythmias: Yes Cardiovascular History Comment: a-fib s/p CV. dyslipidemia - Pulmonary History Hx Oxygen in Use at Home: No Hx Sleep Apnea: Yes Pulmonary History Comment: Does not use CPAP - Endocrine History Hx Diabetes: No - Renal History Hx Renal Disorders: No - Liver History Hx Hepatic Disorders: No - GI History Hx Gastrointestinal Disorders: No - Chronic Pain History Chronic Pain: Yes ANE Review of Systems Review of Systems: ANE Patient History - Allergies Allergies/Adverse Reactions: No Known Allergies Allergy (Unverified 02/01/18 15:08) - Home Medications Home Medications: Cholecalciferol Vit D3 [Vitamin D3 (*)] 2,000 units PO DAILY 02/01/18 [Last Taken 10/19/18 09:00] Melatonin [Melatonin 3 MG (*)] 3 mg PO HS 02/01/18 [Last Taken 10/19/18 22:00] Rosuvastatin Calcium [Crestor] 10 mg PO HS 02/01/18 [Last Taken 01/22/19] Zolpidem Tartrate [Ambien] 10 mg PO HS PRN 02/01/18 [Last Taken 1 Month Ago ~] Triazolam 0.25 mg PO DAILY 10/20/18 [Last Taken Unknown] Apixaban [Eliquis] 5 mg PO BID 01/23/19 [Last Taken 01/23/19 08:00] Lisinopril 10 mg PO DAILY 01/23/19 [Last Taken 01/23/19] - Smoking Hx Smoking Status: Never smoked ANE Labs/Vital Signs - Labs Result Diagrams: 01/23/19 11:05 - Vital Signs Height: 190.5 cm Weight: 95.254 kg ANE Physical Exam - Airway Neck exam: FROM Mallampati Score: Class 1 Mouth exam: normal dental/mouth exam - Pulmonary Pulmonary: no respiratory distress, no rales or rhonchi, clear to auscultation - Cardiovascular Cardiovascular: regular rate and rhythym, no murmur, rub, or gallop - ASA Status ASA Status: III ANE Anesthesia Plan Anesthesia Plan: GA with mask Total IV Anesthesia: Yes
--- NOTE | 2019-01-23 14:03 | CPEKG ---
Test Reason : OPEN Blood Pressure : / mmHG Vent. Rate : 062 BPM Atrial Rate : 063 BPM P-R Int : 182 ms QRS Dur : 092 ms QT Int : 421 ms P-R-T Axes : 028 001 015 degrees QTc Int : 428 ms Sinus rhythm Confirmed by Delio Gonzalez ([id number]) on 01/23/2019 2:02:37 PM Referred By: Guy Drew Confirmed By:Delio Gonzalez
== END 2019-01-23 14:39 | disposition home or self-care (01) ==
LOC: FCATH 10:54
PROVIDERS: ATTEND Internal Medicine Cardiovascular Disease
PROC: 5A2204Z Restoration of Cardiac Rhythm, Single (ICD-10-PCS; principal; 2019-01-23)
PROC: B245ZZ4 Ultrasonography of Left Heart, Transesophageal (ICD-10-PCS; principal; 2019-01-23)
DX: I48.0 Paroxysmal atrial fibrillation (principal); E78.5 Hyperlipidemia, unspecified; G47.33 Obstructive sleep apnea (adult) (pediatric); G89.29 Other chronic pain; Z79.01 Long term (current) use of anticoagulants
CPT/HCPCS: J0461; J2704